=== PATIENT | male | born 1935 | race Caucasian/White ===

== ENCOUNTER 2019-11-13 14:25 | Outpatient (CLI) | payer MEDICARE, OTHER | END 2019-11-13 23:59 | disposition home or self-care (01) | LOC: STAR 14:25 | PROVIDERS: ATTEND Anesthesiology | DX: Z01.89 Encounter for other specified special examinations (principal); R94.31 Abnormal electrocardiogram [ECG] [EKG] | CPT/HCPCS: 93005 ==